=== PATIENT | female | born 1930 | race Caucasian/White ===

== ENCOUNTER 2017-11-10 11:34 | Observation (INO) ==
[2017-11-10] MEDS ORDERED: SODIUM CHLORIDE 0.9% 1,000 ML IV STA (12:00)
[2017-11-10 13:45] LABS: Calcium 9.1 MG/DL (8.5-10.1); Osmolality,Calculated 280.5 MOS/KG (273-304); Potassium 3.2 MMOL/L (3.5-5.1)
[2017-11-10] MEDS ORDERED: fentaNYL 100 MCG/2 ML VIAL IV STA (14:21)
[2017-11-10] MEDS ORDERED: ONDANSETRON 4 MG/2 ML VIAL IV STA (14:21)
[2017-11-10 15:13] LABS: Apearance,Urine CLEAR (Clear); Bilirubin,Urine Negative (Negative); Blood, Urine Small mg/dL (Negative); Glucose,Urine (UA) Negative (Negative); Hyaline Casts,Urine 1 /LPF (0-3); Ketones,Urine 5 mg/dL (Negative); Mucus,Urine Occasional /LPF (Occasional); Nitrite,Urine Negative (Negative); Protein,Urine Negative; RBC,Urine 6 /HPF (0-4); Urine Color Yellow (Yellow); Urine Specific Gravity 1.032 (1.001-1.035); Urine Urobilinogen < 2.0 EU/DL (0.2-1.0); WBC,Urine 8 /HPF (0-6)
[2017-11-10] MEDS ORDERED: ACETAMINOPHEN 325 MG TABLET PO PRN (17:08)
[2017-11-10] MEDS ORDERED: fentaNYL 100 MCG/2 ML VIAL IV PRN (17:08)
[2017-11-10] MEDS ORDERED: SODIUM CHLORIDE 0.9% 1,000 ML IV SCH (17:08)
[2017-11-10] MEDS ORDERED: ONDANSETRON 4 MG/2 ML VIAL IV PRN (17:08)
[2017-11-10] MEDS ORDERED: MAGNESIUM HYDROXIDE SUSP 30 ML UDCUP PO ONE (19:29)
[2017-11-10] MEDS: SODIUM CHLOR 0.9% KCL 20 MEQ 20 MEQ/1,000 ML BAG IV SCH (21:07)
[2017-11-10] MEDS: DOCUSATE SODIUM 100 MG CAPSULE PO SCH (21:07)
[2017-11-10] MEDS: ATENOLOL 25 MG TABLET PO SCH (21:16)
[2017-11-10] MEDS: GABAPENTIN 600 MG TABLET PO SCH (21:17)
[2017-11-10] MEDS: PRAZOSIN 1 MG CAPSULE PO SCH (21:17)
[2017-11-10] MEDS: GEMFIBROZIL 600 MG TABLET PO SCH (21:17)
[2017-11-11 05:06] LABS: Basophils % 0.2 % (0.0-0.8); Hematocrit 33.8 VOL% (35.7-47.0); Hemoglobin 11.5 GM/DL (12.0-16.0); Immature Granulocytes % 0.7 %; Immature Granulocytes Absolute 0.12 #; Lymphocytes % 6.2 % (21.3-54.2); Mean Corpuscular Hemoglobin 32 PG (27-34); Mean Corpuscular Volume 93.1 FL (87-102); Monocytes # 0.9 10*3/uL (0.11-0.8); Monocytes % 5.7 % (1.7-12.7); Neutrophils # 14.5 10*3/uL (1.4-7.4); Neutrophils % 87.2 % (38.7-73.9); Platelet Count 309 T/CUMM (130-400); Red Blood Count 3.63 MC/CUMM (3.8-5.5); Red Cell Distribution Width 12.8 % (9.3-17.3); White Blood Count 16.6 T/CUMM (4-12)
[2017-11-11 05:42] LABS: Albumin 2.7 G/DL (3.4-5.0); Bilirubin,Total 0.9 MG/DL (0.2-1.0); Calcium 8.4 MG/DL (8.5-10.1); Ferritin 203.2 ng/ml (8-252); Potassium 3.7 MMOL/L (3.5-5.1); Risk Ratio 3.18; Thyroid Stimulating Hormone 1.21 uIU/ml (0.358-3.74); Total Protein 6.5 G/DL (6.4-8.3); VLDL CHOLESTEROL 16.6 MG/DL
[2017-11-11] MEDS: SODIUM CHLOR 0.9% KCL 20 MEQ 20 MEQ/1,000 ML BAG IV SCH ×2 (07:08→14:12)
[2017-11-11] MEDS: GABAPENTIN 600 MG TABLET PO SCH ×3 (08:13→20:45)
[2017-11-11] MEDS: PANTOPRAZOLE 40 MG TABLET PO SCH (08:14)
[2017-11-11] MEDS: PRAZOSIN 1 MG CAPSULE PO SCH ×2 (08:14→20:45)
[2017-11-11] MEDS: DOCUSATE SODIUM 100 MG CAPSULE PO SCH ×2 (08:14→20:45)
[2017-11-11] MEDS: GEMFIBROZIL 600 MG TABLET PO SCH ×2 (08:14→20:45)
[2017-11-11] MEDS: ATENOLOL 25 MG TABLET PO SCH ×2 (08:14→20:45)
[2017-11-11] MEDS: ASPIRIN 325 MG TABLET PO SCH (08:16)
[2017-11-11] MEDS: PHENAZOPYRIDINE 95 MG TABLET PO SCH ×3 (09:25→16:53)
[2017-11-12] MEDS: SODIUM CHLOR 0.9% KCL 20 MEQ 20 MEQ/1,000 ML BAG IV SCH ×2 (02:51→03:18)
[2017-11-12] MEDS: GEMFIBROZIL 600 MG TABLET PO SCH (08:05)
[2017-11-12] MEDS: ASPIRIN 325 MG TABLET PO SCH (08:05)
[2017-11-12] MEDS: DOCUSATE SODIUM 100 MG CAPSULE PO SCH (08:05)
[2017-11-12] MEDS: GABAPENTIN 600 MG TABLET PO SCH ×2 (08:06→12:08)
[2017-11-12] MEDS: PANTOPRAZOLE 40 MG TABLET PO SCH (08:07)
[2017-11-12] MEDS: PRAZOSIN 1 MG CAPSULE PO SCH (08:07)
[2017-11-12] MEDS: ATENOLOL 25 MG TABLET PO SCH (08:07)
[2017-11-12] MEDS: PHENAZOPYRIDINE 95 MG TABLET PO SCH ×3 (08:07→16:46)
[2017-11-12 15:42] VITALS: BP 153/73
== END 2017-11-12 17:26 | disposition home health service (06) ==
LOC: EDUNIT# → EDBD → N.EDINP 11:34 → N.ED 11:34 → N.2E 16:23
PROVIDERS: ADMIT Family Medicine; ATTEND Family Medicine

== ENCOUNTER 2019-10-23 18:38 | Inpatient (IN) ==
[2019-10-23] MEDS ORDERED: HYDROmorphone 2 MG/1 ML VIAL IV STA (19:08)
[2019-10-23] MEDS ORDERED: ONDANSETRON 4 MG/2 ML VIAL IV STA (19:08)
[2019-10-23] MEDS ORDERED: SODIUM CHLORIDE 0.9% 500 ML IV STA (19:08)
[2019-10-23 19:31] LABS: Eosinophils # 0.1 10*3/uL (0.0-0.87)
[2019-10-23 19:40] LABS: INR 1.2; PT Patient Result 12.2 SECS (9.8-11.9)
[2019-10-23 19:52] LABS: Basophils % 0.2 % (0.0-0.8); Eosinophils % 0.7 % (0.00-10.9); Immature Granulocytes % 0.4 %; Immature Granulocytes Absolute 0.06 #; Lymphocytes # 1.1 10*3/uL (1.4-4.0); Lymphocytes % 8.2 % (21.3-54.2); Mean Corpuscular HGB Conc 25.7 GM/DL (32-36); Mean Corpuscular Volume 74.9 FL (87-102); Monocytes % 4.8 % (1.7-12.7); Neutrophils % 85.7 % (38.7-73.9); Platelet Count 573 T/CUMM (130-400); Red Blood Count 2.55 MC/CUMM (3.8-5.5); Red Cell Distribution Width 17.1 % (9.3-17.3); White Blood Count 13.7 T/CUMM (4-12)
[2019-10-23 19:53] LABS: Hematocrit 19.1 VOL% (35.7-47.0); Hemoglobin 4.9 GM/DL (12.0-16.0)
[2019-10-23 19:55] LABS: Apearance,Urine CLEAR (Clear); Bilirubin,Urine Negative (Negative); Blood, Urine Negative (Negative); Glucose,Urine (UA) Negative (Negative); Hyaline Casts,Urine 1 /LPF (0-3); Ketones,Urine Negative (Negative); Mucus,Urine Occasional /LPF (Occasional); Nitrite,Urine Negative (Negative); Protein,Urine Negative; RBC,Urine 2 /HPF (0-4); Squamous Epithelial Cell,Urine Occasional /HPF (0-10); Urine Color Yellow (Yellow); Urine Specific Gravity 1.014 (1.001-1.035); Urine Urobilinogen < 2.0 EU/DL (0.2-1.0); WBC,Urine 10 /HPF (0-6)
[2019-10-23 19:57] LABS: Alanine Aminotransferase 10 U/L (13-56); Albumin 2.4 G/DL (3.4-5.0); Alkaline Phosphatase 129 U/L (45-117); Aspartate Amino Transferase 12 U/L (0-37); Bilirubin,Total < 0.39 MG/DL (0.2-1.0); Blood Urea Nitrogen 16 MG/DL (7-18); Calcium 7.9 MG/DL (8.5-10.1); Estimated Glom Filtration Rate 63 ML/MIN; Glucose 99 MG/DL (74-106); Osmolality,Calculated 277.5 MOS/KG (273-304); Total Protein 6.6 G/DL (6.4-8.3)
[2019-10-23] MEDS ORDERED: cefTRIAXone 1,000 MG in SODIUM CHLORIDE 0.9% 100 ML IV STA (20:13)
[2019-10-23] MEDS ORDERED: POTASSIUM CHLORIDE 20 MEQ TABLET PO STA (20:14)
[2019-10-23 20:54] LABS: Sedimentation Rate-Westergren 69 MM/HR (0-30)
[2019-10-23] MEDS ORDERED: SODIUM CHLORIDE 0.9% 1,000 ML IV SCH (23:00)
[2019-10-23] MEDS ORDERED: SODIUM CHLORIDE 0.9% 1,000 ML IV PRN (23:00)
[2019-10-23] MEDS ORDERED: ONDANSETRON 4 MG/2 ML VIAL IV PRN (23:00)
[2019-10-24 00:07] LABS: Basophils % 0.3 % (0.0-0.8); Eosinophils # 0.1 10*3/uL (0.0-0.87); Eosinophils % 0.9 % (0.00-10.9); Hematocrit 18.5 VOL% (35.7-47.0); Immature Granulocytes % 0.6 %; Immature Granulocytes Absolute 0.09 #; Lymphocytes # 1.7 10*3/uL (1.4-4.0); Lymphocytes % 11.7 % (21.3-54.2); Mean Corpuscular HGB Conc 25.9 GM/DL (32-36); Mean Corpuscular Volume 75.8 FL (87-102); Mean Platelet Volume 9.6 FL (9.6-12.0); Monocytes % 5.6 % (1.7-12.7); NRBC # 0.02 10*3/uL; Neutrophils % 80.9 % (38.7-73.9); Platelet Count 561 T/CUMM (130-400); Red Blood Count 2.44 MC/CUMM (3.8-5.5); Red Cell Distribution Width 17.1 % (9.3-17.3); White Blood Count 14.1 T/CUMM (4-12)
[2019-10-24 00:17] LABS: Hemoglobin 4.8 GM/DL (12.0-16.0)
[2019-10-24 04:27] LABS: Platelet Estimate Increased
[2019-10-24 04:28] LABS: Ovalocytes 1+; Polychromasia Few
[2019-10-24 04:29] LABS: Hypochromasia 2+; Microcytosis 2+
[2019-10-24] MEDS ORDERED: FUROSEMIDE 20 MG/2 ML VIAL IV ONE (04:43)
[2019-10-24 05:40] LABS: Albumin 2.2 G/DL (3.4-5.0); Bilirubin,Total 0.6 MG/DL (0.2-1.0); Calcium 7.7 MG/DL (8.5-10.1); Osmolality,Calculated 280.3 MOS/KG (273-304); Risk Ratio 3.29; Total Protein 6.2 G/DL (6.4-8.3)
[2019-10-24] MEDS: ACETAMINOPHEN 325 MG TABLET PO PRN ×2 (08:13→17:09)
[2019-10-24] MEDS: POTASSIUM CHLORIDE RIDER 10 MEQ in PREMIX 1 EACH IV SCH ×2 (09:08→10:50)
[2019-10-24] MEDS: PANTOPRAZOLE 40 MG VIAL IV SCH (09:08)
[2019-10-24] MEDS: DOCUSATE SODIUM 100 MG CAPSULE PO SCH ×2 (09:08→21:02)
[2019-10-24] MEDS: SODIUM CHLOR 0.9% KCL 20 MEQ 20 MEQ/1,000 ML BAG IV SCH ×2 (09:59→22:13)
[2019-10-24 11:47] LABS: Hematocrit 28.2 VOL% (35.7-47.0); Hemoglobin 8.1 GM/DL (12.0-16.0)
[2019-10-24 14:14] LABS: Hematocrit 26.7 VOL% (35.7-47.0); Hemoglobin 7.8 GM/DL (12.0-16.0)
[2019-10-24] MEDS: cefTRIAXone 1,000 MG in SODIUM CHLORIDE 0.9% 100 ML IV SCH (21:01)
[2019-10-24] MEDS: HYDROmorphone 2 MG/1 ML VIAL IV PRN (21:09)
[2019-10-24 22:44] LABS: Hematocrit 26.9 VOL% (35.7-47.0); Hemoglobin 7.7 GM/DL (12.0-16.0)
[2019-10-25] MEDS: SODIUM CHLOR 0.9% KCL 20 MEQ 20 MEQ/1,000 ML BAG IV SCH ×3 (01:45→15:31)
[2019-10-25] MEDS: POTASSIUM CHLORIDE RIDER 10 MEQ in PREMIX 1 EACH IV SCH ×3 (08:48→11:28)
[2019-10-25] MEDS: PANTOPRAZOLE 40 MG VIAL IV SCH (08:51)
[2019-10-25] MEDS: ASPIRIN 325 MG TABLET PO SCH (08:52)
[2019-10-25] MEDS: GABAPENTIN 300 MG CAPSULE PO SCH ×2 (08:52→11:28)
[2019-10-25] MEDS: gemfibroziL 600 MG TABLET PO SCH ×2 (08:52→20:59)
[2019-10-25] MEDS: DOCUSATE SODIUM 100 MG CAPSULE PO SCH ×2 (08:53→20:59)
[2019-10-25] MEDS: atenoloL 25 MG TABLET PO SCH ×2 (08:53→20:59)
[2019-10-25 09:01] LABS: Basophils % 0.3 % (0.0-0.8); Eosinophils # 0.1 10*3/uL (0.0-0.87); Hematocrit 27.7 VOL% (35.7-47.0); Hemoglobin 7.9 GM/DL (12.0-16.0); Immature Granulocytes % 0.5 %; Immature Granulocytes Absolute 0.07 #; Lymphocytes # 1.3 10*3/uL (1.4-4.0); Lymphocytes % 9.1 % (21.3-54.2); Mean Corpuscular HGB Conc 28.5 GM/DL (32-36); Mean Corpuscular Volume 80.3 FL (87-102); Mean Platelet Volume 9.9 FL (9.6-12.0); Neutrophils % 84.1 % (38.7-73.9); Platelet Count 518 T/CUMM (130-400); Red Blood Count 3.45 MC/CUMM (3.8-5.5); Red Cell Distribution Width 19.1 % (9.3-17.3); White Blood Count 14.3 T/CUMM (4-12)
[2019-10-25 09:11] LABS: Albumin 2.2 G/DL (3.4-5.0); Bilirubin,Total 0.4 MG/DL (0.2-1.0); Calcium 7.7 MG/DL (8.5-10.1); Osmolality,Calculated 273.7 MOS/KG (273-304); Total Protein 6.5 G/DL (6.4-8.3)
[2019-10-25 09:18] LABS: Hypochromasia 2+; Microcytosis 1+; Ovalocytes Slight; Platelet Estimate Increased
[2019-10-25] MEDS: PRAZOSIN 1 MG CAPSULE PO SCH ×2 (10:35→20:59)
[2019-10-25] MEDS: VANCOMYCIN INJ 1,000 MG in SODIUM CHLORIDE 0.9% 250 ML IV SCH (11:27)
[2019-10-25] MEDS: cefTRIAXone 1,000 MG in SODIUM CHLORIDE 0.9% 100 ML IV SCH (20:58)
[2019-10-26] MEDS: VANCOMYCIN INJ 1,000 MG in SODIUM CHLORIDE 0.9% 250 ML IV SCH ×2 (04:50→21:26)
[2019-10-26 06:24] LABS: Basophils # 0.1 10*3/uL (0.0-0.2); Basophils % 0.6 % (0.0-0.8); Eosinophils # 0.6 10*3/uL (0.0-0.87); Eosinophils % 4.7 % (0.00-10.9); Hemoglobin 7.7 GM/DL (12.0-16.0); Immature Granulocytes % 0.4 %; Immature Granulocytes Absolute 0.05 #; Lymphocytes # 1.5 10*3/uL (1.4-4.0); Lymphocytes % 12.1 % (21.3-54.2); Mean Corpuscular HGB Conc 28.5 GM/DL (32-36); Mean Corpuscular Volume 79.4 FL (87-102); Mean Platelet Volume 9.6 FL (9.6-12.0); Monocytes % 5.9 % (1.7-12.7); Neutrophils % 76.3 % (38.7-73.9); Platelet Count 465 T/CUMM (130-400); Red Cell Distribution Width 19.7 % (9.3-17.3); White Blood Count 12.1 T/CUMM (4-12)
[2019-10-26 06:40] LABS: Apearance,Urine CLEAR (Clear); Bilirubin,Urine Negative (Negative); Blood, Urine Negative (Negative); Glucose,Urine (UA) Negative (Negative); Ketones,Urine Negative (Negative); Mucus,Urine Occasional /LPF (Occasional); Nitrite,Urine Negative (Negative); Protein,Urine Negative; Squamous Epithelial Cell,Urine Occasional /HPF (0-10); Urine Color Straw (Yellow); Urine Urobilinogen < 2.0 EU/DL (0.2-1.0); WBC,Urine 1 /HPF (0-6)
[2019-10-26 06:47] LABS: Hypochromasia 2+; Microcytosis 1+; Ovalocytes Slight; Platelet Estimate Adequate
[2019-10-26] MEDS: DOCUSATE SODIUM 100 MG CAPSULE PO SCH ×2 (08:42→20:18)
[2019-10-26] MEDS: GABAPENTIN 300 MG CAPSULE PO SCH ×2 (08:42→11:43)
[2019-10-26] MEDS: SODIUM CHLOR 0.9% KCL 20 MEQ 20 MEQ/1,000 ML BAG IV SCH ×2 (08:42→14:50)
[2019-10-26] MEDS: ASPIRIN 325 MG TABLET PO SCH (08:42)
[2019-10-26] MEDS: gemfibroziL 600 MG TABLET PO SCH ×2 (08:43→20:18)
[2019-10-26] MEDS: PRAZOSIN 1 MG CAPSULE PO SCH ×2 (08:43→20:17)
[2019-10-26] MEDS: PANTOPRAZOLE 40 MG VIAL IV SCH (08:43)
[2019-10-26] MEDS: atenoloL 25 MG TABLET PO SCH ×2 (08:43→20:18)
[2019-10-26] MEDS: cefTRIAXone 1,000 MG in SODIUM CHLORIDE 0.9% 100 ML IV SCH (20:18)
[2019-10-26] MEDS: HYDROmorphone 2 MG/1 ML VIAL IV PRN (21:26)
[2019-10-27] MEDS: SODIUM CHLOR 0.9% KCL 20 MEQ 20 MEQ/1,000 ML BAG IV SCH ×3 (01:01→16:25)
[2019-10-27 06:41] LABS: Basophils % 0.1 % (0.0-0.8); Hematocrit 29.4 VOL% (35.7-47.0); Hemoglobin 8.5 GM/DL (12.0-16.0); Immature Granulocytes % 0.2 %; Immature Granulocytes Absolute 0.02 #; Lymphocytes # 0.3 10*3/uL (1.4-4.0); Lymphocytes % 3.2 % (21.3-54.2); Mean Corpuscular HGB Conc 28.9 GM/DL (32-36); Mean Corpuscular Volume 78.4 FL (87-102); Mean Platelet Volume 9.8 FL (9.6-12.0); Monocytes % 2.8 % (1.7-12.7); Neutrophils % 93.7 % (38.7-73.9); Platelet Count 489 T/CUMM (130-400); Red Blood Count 3.75 MC/CUMM (3.8-5.5); Red Cell Distribution Width 20.6 % (9.3-17.3); White Blood Count 9.3 T/CUMM (4-12)
[2019-10-27 07:05] LABS: Alanine Aminotransferase < 9 U/L (13-56); Albumin 1.8 G/DL (3.4-5.0); Alkaline Phosphatase 91 U/L (45-117); Aspartate Amino Transferase 12 U/L (0-37); Blood Urea Nitrogen 15 MG/DL (7-18); Calcium 7.6 MG/DL (8.5-10.1); Estimated Glom Filtration Rate 63 ML/MIN; Glucose 111 MG/DL (74-106); Osmolality,Calculated 276.7 MOS/KG (273-304); Total Protein 5.6 G/DL (6.4-8.3)
[2019-10-27] MEDS: ASPIRIN 325 MG TABLET PO SCH (08:59)
[2019-10-27] MEDS: DOCUSATE SODIUM 100 MG CAPSULE PO SCH ×2 (08:59→20:32)
[2019-10-27] MEDS: gemfibroziL 600 MG TABLET PO SCH ×2 (08:59→20:32)
[2019-10-27] MEDS: GABAPENTIN 300 MG CAPSULE PO SCH ×2 (08:59→12:58)
[2019-10-27] MEDS: PRAZOSIN 1 MG CAPSULE PO SCH ×2 (09:02→20:36)
[2019-10-27] MEDS: atenoloL 25 MG TABLET PO SCH ×2 (09:03→20:36)
[2019-10-27] MEDS: PANTOPRAZOLE 40 MG VIAL IV SCH (10:31)
[2019-10-27 12:12] LABS: Band Neutrophils 16 % (0-10); Lymphocytes 6 % (20-55); Segmented Neutrophils 76 % (50-85); Total Cells Counted 100
[2019-10-27 12:13] LABS: Hypochromasia 2+; Microcytosis 1+
[2019-10-27 12:14] LABS: Platelet Estimate Adequate
[2019-10-27] MEDS ORDERED: SODIUM CHLORIDE 0.9% 250 ML IV ONE (12:30)
[2019-10-27] MEDS: VANCOMYCIN INJ 1,000 MG in SODIUM CHLORIDE 0.9% 250 ML IV SCH (16:25)
[2019-10-27] MEDS: cefTRIAXone 1,000 MG in SODIUM CHLORIDE 0.9% 100 ML IV SCH (20:31)
[2019-10-28 03:44] LABS: Basophils # 0.1 10*3/uL (0.0-0.2); Basophils % 0.2 % (0.0-0.8); Eosinophils % 0.1 % (0.00-10.9); Hemoglobin 7.9 GM/DL (12.0-16.0); Immature Granulocytes % 0.8 %; Immature Granulocytes Absolute 0.17 #; Lymphocytes % 4.5 % (21.3-54.2); Mean Corpuscular HGB Conc 28.2 GM/DL (32-36); Mean Corpuscular Volume 78.9 FL (87-102); Mean Platelet Volume 9.9 FL (9.6-12.0); Monocytes % 3.1 % (1.7-12.7); Neutrophils % 91.3 % (38.7-73.9); Platelet Count 477 T/CUMM (130-400); Red Blood Count 3.55 MC/CUMM (3.8-5.5); Red Cell Distribution Width 21.3 % (9.3-17.3); White Blood Count 21.4 T/CUMM (4-12)
[2019-10-28 04:05] LABS: Alanine Aminotransferase < 9 U/L (13-56); Albumin 1.6 G/DL (3.4-5.0); Alkaline Phosphatase 70 U/L (45-117); Aspartate Amino Transferase 15 U/L (0-37); Blood Urea Nitrogen 30 MG/DL (7-18); Estimated Glom Filtration Rate 43 ML/MIN; Glucose 78 MG/DL (74-106); Osmolality,Calculated 285.3 MOS/KG (273-304); Total Protein 5.3 G/DL (6.4-8.3)
[2019-10-28 04:16] LABS: Hematocrit 27.5 VOL% (35.7-47.0)
[2019-10-28 05:17] LABS: Band Neutrophils 28 % (0-10); Lymphocytes 3 % (20-55); Segmented Neutrophils 66 % (50-85); Total Cells Counted 100
[2019-10-28 05:18] LABS: Anisocytosis 1+; Hypochromasia 1+; Ovalocytes Few; Platelet Estimate Normal
[2019-10-28] MEDS: ASPIRIN 325 MG TABLET PO SCH (08:57)
[2019-10-28] MEDS: DOCUSATE SODIUM 100 MG CAPSULE PO SCH ×2 (08:57→20:39)
[2019-10-28] MEDS: gemfibroziL 600 MG TABLET PO SCH ×2 (08:57→20:39)
[2019-10-28] MEDS: atenoloL 25 MG TABLET PO SCH ×2 (09:10→20:40)
[2019-10-28] MEDS: GABAPENTIN 300 MG CAPSULE PO SCH ×2 (09:10→14:58)
[2019-10-28] MEDS: PRAZOSIN 1 MG CAPSULE PO SCH ×2 (09:10→20:40)
[2019-10-28] MEDS: PANTOPRAZOLE 40 MG VIAL IV SCH (09:10)
[2019-10-28] MEDS: VANCOMYCIN INJ 1,000 MG in SODIUM CHLORIDE 0.9% 250 ML IV SCH (09:10)
[2019-10-28] MEDS: SODIUM CHLOR 0.9% KCL 20 MEQ 20 MEQ/1,000 ML BAG IV SCH ×2 (09:11→23:43)
[2019-10-28] MEDS ORDERED: FUROSEMIDE 20 MG/2 ML VIAL IV ONE (09:55)
[2019-10-28 11:30] LABS: Apearance,Urine Slightly Hazy (Clear); Bilirubin,Urine Negative (Negative); Blood, Urine Small mg/dL (Negative); Glucose,Urine (UA) Negative (Negative); Ketones,Urine Negative (Negative); Mucus,Urine Occasional /LPF (Occasional); Nitrite,Urine Negative (Negative); Protein,Urine Negative; RBC,Urine 1 /HPF (0-4); Squamous Epithelial Cell,Urine Occasional /HPF (0-10); Urine Color Yellow (Yellow); Urine Specific Gravity 1.017 (1.001-1.035); Urine Urobilinogen < 2.0 EU/DL (0.2-1.0); WBC,Urine 1 /HPF (0-6)
[2019-10-28] MEDS ORDERED: DILTIAZEM 50 MG/10 ML VIAL IV ONE ×3 (12:51→12:53)
[2019-10-28] MEDS ORDERED: METOPROLOL TARTRATE 5 MG/5 ML VIAL IV ONE ×3 (12:51→12:52)
[2019-10-28] MEDS ORDERED: dilTIAZem Drip 125 MG/125 ML PREMIX IV SCH (13:00)
[2019-10-28] MEDS: dilTIAZem Drip 125 MG/125 ML PREMIX IV SCH (13:57)
[2019-10-28] MEDS ORDERED: AMIODARONE INJ 450 MG in DEXTROSE 5% 241 ML IV SCH (14:00)
[2019-10-28] MEDS ORDERED: MAGNESIUM SULF RIDER 1 GM in PREMIX 1 EACH IV ONE (18:26)
[2019-10-28] MEDS: AMIODARONE INJ 450 MG in DEXTROSE 5% 241 ML IV SCH ×2 (19:49→23:31)
[2019-10-28] MEDS: DILTIAZEM 30 MG TABLET PO SCH (20:39)
[2019-10-28] MEDS: MAGNESIUM OXIDE 400 MG TABLET PO SCH (20:39)
[2019-10-28] MEDS: cefTRIAXone 1,000 MG in SODIUM CHLORIDE 0.9% 100 ML IV SCH (20:40)
[2019-10-29] MEDS: VANCOMYCIN INJ 1,000 MG in SODIUM CHLORIDE 0.9% 250 ML IV SCH ×2 (02:58→21:15)
[2019-10-29 06:37] LABS: Basophils # 0.1 10*3/uL (0.0-0.2); Basophils % 0.2 % (0.0-0.8); Eosinophils # 0.1 10*3/uL (0.0-0.87); Eosinophils % 0.3 % (0.00-10.9); Hematocrit 28.1 VOL% (35.7-47.0); Hemoglobin 8.2 GM/DL (12.0-16.0); Immature Granulocytes % 2.9 %; Immature Granulocytes Absolute 0.76 #; Lymphocytes % 3.9 % (21.3-54.2); Mean Corpuscular HGB Conc 29.2 GM/DL (32-36); Mean Platelet Volume 9.7 FL (9.6-12.0); Neutrophils % 90.7 % (38.7-73.9); Platelet Count 496 T/CUMM (130-400); Red Blood Count 3.65 MC/CUMM (3.8-5.5); Red Cell Distribution Width 21.6 % (9.3-17.3); White Blood Count 26.4 T/CUMM (4-12)
[2019-10-29 06:43] LABS: Calcium 8.2 MG/DL (8.5-10.1); Osmolality,Calculated 286.4 MOS/KG (273-304)
[2019-10-29 06:48] LABS: Band Neutrophils 4 % (0-10); Lymphocytes 2 % (20-55); Platelet Estimate Adequate; Segmented Neutrophils 92 % (50-85); Total Cells Counted 100
[2019-10-29 06:49] LABS: Hypochromasia 1+; Microcytosis 1+; Ovalocytes Slight
[2019-10-29] MEDS: dilTIAZem Drip 125 MG/125 ML PREMIX IV SCH ×2 (09:04→12:56)
[2019-10-29] MEDS: PANTOPRAZOLE 40 MG VIAL IV SCH (09:05)
[2019-10-29] MEDS: DILTIAZEM 30 MG TABLET PO SCH ×4 (09:05→20:41)
[2019-10-29] MEDS: GABAPENTIN 300 MG CAPSULE PO SCH ×2 (09:05→12:50)
[2019-10-29] MEDS: ASPIRIN 325 MG TABLET PO SCH (09:05)
[2019-10-29] MEDS: MAGNESIUM OXIDE 400 MG TABLET PO SCH ×2 (09:05→20:42)
[2019-10-29] MEDS: PRAZOSIN 1 MG CAPSULE PO SCH ×2 (09:06→20:42)
[2019-10-29] MEDS: atenoloL 25 MG TABLET PO SCH ×2 (09:06→20:44)
[2019-10-29] MEDS: gemfibroziL 600 MG TABLET PO SCH ×2 (09:06→20:42)
[2019-10-29] MEDS: DOCUSATE SODIUM 100 MG CAPSULE PO SCH ×2 (09:06→20:42)
[2019-10-29] MEDS: AMIODARONE INJ 450 MG in DEXTROSE 5% 241 ML IV SCH ×2 (12:46→17:34)
[2019-10-29] MEDS: HYDROmorphone 2 MG/1 ML VIAL IV PRN ×2 (20:08→23:30)
[2019-10-29] MEDS: AMIODARONE 200 MG TABLET PO SCH (20:42)
[2019-10-29] MEDS: SODIUM CHLOR 0.9% KCL 20 MEQ 20 MEQ/1,000 ML BAG IV SCH (20:43)
[2019-10-29] MEDS: cefTRIAXone 1,000 MG in SODIUM CHLORIDE 0.9% 100 ML IV SCH (20:43)
[2019-10-29] MEDS: CEFTRIAXONE IV SCH (20:47)
[2019-10-30] MEDS: HYDROmorphone 2 MG/1 ML VIAL IV PRN ×4 (02:33→23:47)
[2019-10-30 05:25] LABS: Basophils % 0.2 % (0.0-0.8); Eosinophils # 0.1 10*3/uL (0.0-0.87); Eosinophils % 0.4 % (0.00-10.9); Hematocrit 25.5 VOL% (35.7-47.0); Hemoglobin 7.2 GM/DL (12.0-16.0); Immature Granulocytes % 0.4 %; Lymphocytes # 0.9 10*3/uL (1.4-4.0); Lymphocytes % 3.9 % (21.3-54.2); Mean Corpuscular HGB Conc 28.2 GM/DL (32-36); Mean Platelet Volume 9.8 FL (9.6-12.0); Monocytes % 2.8 % (1.7-12.7); NRBC # 0.02 10*3/uL; Neutrophils % 92.3 % (38.7-73.9); Platelet Count 429 T/CUMM (130-400); Red Blood Count 3.27 MC/CUMM (3.8-5.5); Red Cell Distribution Width 21.5 % (9.3-17.3); White Blood Count 22.4 T/CUMM (4-12)
[2019-10-30 05:51] LABS: Calcium 8.3 MG/DL (8.5-10.1); Osmolality,Calculated 280.8 MOS/KG (273-304)
[2019-10-30 06:02] LABS: Band Neutrophils 2 % (0-10); Hypochromasia 2+; Lymphocytes 3 % (20-55); Segmented Neutrophils 94 % (50-85); Total Cells Counted 100
[2019-10-30 06:03] LABS: Burr Cells Few; Microcytosis 1+; Platelet Estimate Increased; Target Cells Slight
[2019-10-30] MEDS ORDERED: SODIUM CHLORIDE 0.9% 1,000 ML IV PRN (07:17)
[2019-10-30] MEDS: PANTOPRAZOLE 40 MG VIAL IV SCH ×2 (10:17→12:10)
[2019-10-30] MEDS: ASPIRIN 325 MG TABLET PO SCH (10:42)
[2019-10-30] MEDS: DILTIAZEM 30 MG TABLET PO SCH ×4 (10:42→21:54)
[2019-10-30] MEDS: GABAPENTIN 300 MG CAPSULE PO SCH ×2 (10:42→12:10)
[2019-10-30] MEDS: AMIODARONE INJ 450 MG in DEXTROSE 5% 241 ML IV SCH (10:43)
[2019-10-30] MEDS ORDERED: TUBERCULIN SKIN TEST 0.1 ML SYRINGE INTRADERM ONE (12:02)
[2019-10-30] MEDS: MAGNESIUM OXIDE 400 MG TABLET PO SCH ×2 (12:09→21:53)
[2019-10-30] MEDS: atenoloL 25 MG TABLET PO SCH ×2 (12:09→21:54)
[2019-10-30] MEDS: PRAZOSIN 1 MG CAPSULE PO SCH ×2 (12:09→21:49)
[2019-10-30] MEDS: DOCUSATE SODIUM 100 MG CAPSULE PO SCH ×2 (12:09→21:54)
[2019-10-30] MEDS: SUCRALFATE 1 GM/10 ML UDCUP PO SCH ×3 (12:10→21:49)
[2019-10-30] MEDS: gemfibroziL 600 MG TABLET PO SCH ×2 (12:10→21:54)
[2019-10-30] MEDS: AMIODARONE 200 MG TABLET PO SCH ×2 (12:10→21:54)
[2019-10-30] MEDS ORDERED: FUROSEMIDE 20 MG/2 ML VIAL IV ONE (13:59)
[2019-10-30] MEDS: VANCOMYCIN INJ 1,000 MG in SODIUM CHLORIDE 0.9% 250 ML IV SCH (21:48)
[2019-10-30] MEDS: CEFTRIAXONE IV SCH (21:48)
[2019-10-31] MEDS: HYDROmorphone 2 MG/1 ML VIAL IV PRN (02:47)
[2019-10-31 05:17] LABS: Basophils % 0.5 % (0.0-0.8); Eosinophils % 0.1 % (0.00-10.9); Hematocrit 40.4 VOL% (35.7-47.0); Hemoglobin 12.3 GM/DL (12.0-16.0); Immature Granulocytes % 0.1 %; Immature Granulocytes Absolute 0.01 #; Lymphocytes # 0.5 10*3/uL (1.4-4.0); Lymphocytes % 5.8 % (21.3-54.2); Mean Corpuscular HGB Conc 30.4 GM/DL (32-36); Mean Corpuscular Volume 76.4 FL (87-102); Mean Platelet Volume 9.9 FL (9.6-12.0); Monocytes % 2.6 % (1.7-12.7); NRBC # 0.05 10*3/uL; Neutrophils % 90.9 % (38.7-73.9); Platelet Count 428 T/CUMM (130-400); Red Blood Count 5.29 MC/CUMM (3.8-5.5); Red Cell Distribution Width 20.7 % (9.3-17.3); White Blood Count 7.8 T/CUMM (4-12)
[2019-10-31 05:25] LABS: Alanine Aminotransferase < 9 U/L (13-56); Albumin 1.3 G/DL (3.4-5.0); Alkaline Phosphatase 94 U/L (45-117); Aspartate Amino Transferase 9 U/L (0-37); Blood Urea Nitrogen 32 MG/DL (7-18); Calcium 8.2 MG/DL (8.5-10.1); Estimated Glom Filtration Rate 48 ML/MIN; Glucose 78 MG/DL (74-106); Osmolality,Calculated 282.5 MOS/KG (273-304); Total Protein 5.4 G/DL (6.4-8.3)
[2019-10-31 06:00] LABS: Band Neutrophils 11 % (0-10); Hypochromasia 1+; Lymphocytes 1 % (20-55); Metamyelocytes 1 %; Microcytosis 1+; Polychromasia Slight; Promyelocytes 1 %; Segmented Neutrophils 81 % (50-85); Total Cells Counted 100
[2019-10-31 06:01] LABS: Platelet Estimate Increased
[2019-10-31] MEDS: GABAPENTIN 300 MG CAPSULE PO SCH ×2 (09:52→13:08)
[2019-10-31] MEDS: DOCUSATE SODIUM 100 MG CAPSULE PO SCH (09:52)
[2019-10-31] MEDS: gemfibroziL 600 MG TABLET PO SCH (09:52)
[2019-10-31] MEDS: MAGNESIUM OXIDE 400 MG TABLET PO SCH (09:52)
[2019-10-31] MEDS: ASPIRIN 325 MG TABLET PO SCH (09:52)
[2019-10-31] MEDS: PANTOPRAZOLE 40 MG VIAL IV SCH (09:53)
[2019-10-31] MEDS: SUCRALFATE 1 GM/10 ML UDCUP PO SCH ×2 (09:53→13:08)
[2019-10-31] MEDS: AMIODARONE 200 MG TABLET PO SCH ×2 (10:57→11:35)
[2019-10-31] MEDS: atenoloL 25 MG TABLET PO SCH ×2 (10:57→11:35)
[2019-10-31] MEDS: DILTIAZEM 30 MG TABLET PO SCH ×2 (10:57→11:20)
[2019-10-31] MEDS: NYSTATIN 500,000 UNIT/5 ML UDCUP SWISH/SWAL SCH ×2 (10:57→13:08)
[2019-10-31 11:19] VITALS: BP 173/80
[2019-10-31] MEDS ORDERED: FUROSEMIDE 40 MG/4 ML VIAL IV ONE ×2 (11:23→12:20)
[2019-10-31] MEDS ORDERED: ALBUTEROL/IPRATROPIUM 3 ML NEB RESP TX SCH (13:00)
[2019-10-31] MEDS: SODIUM CHLOR 0.9% KCL 20 MEQ 20 MEQ/1,000 ML BAG IV SCH (14:22)
[2019-10-31] MEDS ORDERED: FUROSEMIDE 40 MG/4 ML VIAL IV SCH (16:00)
== END 2019-10-31 14:51 | disposition expired | DRG 377 ==
LOC: EDBD → EDUNIT# → N.ED 18:38 → N.EDINP 21:43 → N.TELEN 22:03
PROVIDERS: ADMIT Family Medicine; ATTEND Family Medicine